=== PATIENT | male | born 2000 | race Caucasian/White ===

== ENCOUNTER 2024-05-31 20:58 | Emergency (ER) | payer BC, OTHER ==
[2024-05-31] MEDS: Acetaminophen/oxyCODONE 325-5 MG Tab PO ONE (21:20)
== END 2024-05-31 22:40 | disposition home or self-care (01) ==
LOC: VM.ED 20:58
DX: S70.02XA Contusion of left hip, initial encounter (principal); S70.12XA Contusion of left thigh, initial encounter; W01.0XXA Fall on same level from slipping, tripping and stumbling without subsequent striking against object, initial encounter
CPT/HCPCS: 73502; 73552; 99283; A9270